=== PATIENT | male | born 1940 | race Caucasian/White ===

== ENCOUNTER 2020-09-30 09:27 | Outpatient (REF) | payer MEDICARE, SELFPAY ==
[2020-09-30 10:16] LABS: Basophils Absolute Auto 0.1 X10*3/uL (0.0-0.2); Basophils Percent Auto 1.6 % (0-2); Eosinophils Absolute Auto 0.5 X10*3/uL (0.0-0.4); Eosinophils Percent Auto 10.4 % (0-4); Hematocrit 37.4 % (42-52); Hemoglobin 12.1 g/dl (14.0-18.0); Imm Gran Abs Auto 0.04 X10*3/uL (0.00-0.03); Imm Gran Pct Auto 0.8 % (0.0-0.4); Lymphocytes Absolute Auto 1.6 X10*3/uL (1.2-4.9); Mean Corpuscular HGB Conc 32.4 g/dl (31.0-36.0); Mean Corpuscular Hemoglobin 30.3 pg (27.0-33.0); Mean Corpuscular Volume 93.7 fL (80-98); Mean Platelet Volume 9.3 fL (9.4-12.4); Monocytes Absolute Auto 0.4 X10*3/uL (0.1-1.2); Monocytes Percent Auto 8.4 % (2-11); Neutrophils Absolute Auto 2.4 X10*3/uL (2.0-8.3); Neutrophils Percent Auto 46.8 % (45-73); Platelet Count 186 X10*3/uL (160-400); Red Blood Count 3.99 X10*6/uL (4.60-5.80); Red Cell Distribution Width 12.7 % (11.0-16.0); White Blood Count 5.1 X10*3/uL (4.8-10.8)
[2020-09-30 10:17] LABS: MANUAL DIFF FLAG NO
[2020-09-30 10:47] LABS: Alanine Aminotransferase 21 U/L (0-40); Albumin Level 3.4 g/dL (3.5-5.0); Alkaline Phosphatase 77 U/L (39-117); Anion Gap 9 (12-20); Aspartate Amino Transferase 29 U/L (5-37); Bilirubin Total 1.4 mg/dL (0.0-1.0); Blood Urea Nitrogen 15 mg/dL (9-16); Calcium 8.5 mg/dL (8.4-10.2); Carbon Dioxide 30 mmol/L (22-29); Chloride 108 mmol/L (96-108); Cholesterol 147 mg/dL; Estimated Glomerular Filt Rate > 60; Glucose Fasting 100 mg/dL (60-99); HDL Cholesterol 43 mg/dL; LDL Cholesterol Calculated 87 mg/dl; Potassium 4.6 mmol/l (3.3-5.1); Sodium 142 mmol/L (135-145); Total Protein 6.2 g/dL (6.5-8.0); Triglycerides 89 mg/dL
== END 2020-09-30 09:28 | disposition home or self-care (01) ==
LOC: HO.LAB 09:27
PROVIDERS: Visit Provider Internal Medicine
DX: I48.91 Unspecified atrial fibrillation (principal); E78.00 Pure hypercholesterolemia, unspecified; I25.10 Atherosclerotic heart disease of native coronary artery without angina pectoris
CPT/HCPCS: 36415; 80053; 80061; 85025

== ENCOUNTER 2021-02-27 10:37 | Outpatient (REF) | payer MEDICARE, SELFPAY ==
[2021-02-27 13:31] LABS: MANUAL DIFF FLAG NO
[2021-02-27 13:36] LABS: Basophils Absolute Auto 0.1 X10*3/uL (0.0-0.2); Basophils Percent Auto 2.4 % (0-2); Eosinophils Absolute Auto 1.1 X10*3/uL (0.0-0.4); Eosinophils Percent Auto 20.5 % (0-4); Hematocrit 36.7 % (42-52); Lymphocytes Absolute Auto 1.4 X10*3/uL (1.2-4.9); Mean Corpuscular HGB Conc 32.7 g/dl (31.0-36.0); Mean Corpuscular Hemoglobin 31.1 pg (27.0-33.0); Mean Corpuscular Volume 95.1 fL (80-98); Mean Platelet Volume 9.8 fL (9.4-12.4); Monocytes Absolute Auto 0.4 X10*3/uL (0.1-1.2); Monocytes Percent Auto 7.1 % (2-11); Neutrophils Absolute Auto 2.4 X10*3/uL (2.0-8.3); Platelet Count 181 X10*3/uL (160-400); Red Blood Count 3.86 X10*6/uL (4.60-5.80); Red Cell Distribution Width 12.5 % (11.0-16.0); White Blood Count 5.5 X10*3/uL (4.8-10.8)
[2021-02-27 13:59] LABS: Alanine Aminotransferase 20 U/L (0-40); Albumin Level 3.5 g/dL (3.5-5.0); Alkaline Phosphatase 74 U/L (39-117); Anion Gap 12 (12-20); Aspartate Amino Transferase 32 U/L (5-37); Bilirubin Total 1.6 mg/dL (0.0-1.0); Blood Urea Nitrogen 18 mg/dL (9-16); Calcium 8.9 mg/dL (8.4-10.2); Carbon Dioxide 28 mmol/L (22-29); Chloride 107 mmol/L (96-108); Estimated Glomerular Filt Rate > 60; Glucose Random 100 mg/dL (60-115); Potassium 4.6 mmol/L (3.3-5.1); Sodium 142 mmol/L (135-145); Total Protein 6.2 g/dL (6.5-8.0)
== END 2021-02-27 10:38 | disposition home or self-care (01) ==
LOC: HO.10HDL 10:37
PROVIDERS: Visit Provider Internal Medicine
DX: I48.91 Unspecified atrial fibrillation (principal); I10 Essential (primary) hypertension; E78.00 Pure hypercholesterolemia, unspecified
CPT/HCPCS: 36415; 80053; 85025

== ENCOUNTER 2021-09-24 08:58 | Outpatient (REF) | payer MEDICARE, SELFPAY ==
[2021-09-24 10:19] LABS: Basophils Absolute Auto 0.1 X10*3/uL (0.0-0.2); Eosinophils Absolute Auto 1.4 X10*3/uL (0.0-0.4); Eosinophils Percent Auto 21.3 % (0-4); Hematocrit 35.2 % (42.0-52.0); Hemoglobin 11.5 g/dl (14.0-18.0); Imm Gran Abs Auto 0.01 X10*3/uL (0.00-0.03); Imm Gran Pct Auto 0.2 % (0.0-0.4); Lymphocytes Absolute Auto 1.7 X10*3/uL (1.2-4.9); Lymphocytes Percent Auto 26.4 % (20-40); Mean Corpuscular HGB Conc 32.7 g/dl (31.0-36.0); Mean Corpuscular Hemoglobin 30.6 pg (27.0-33.0); Mean Corpuscular Volume 93.6 fL (80.0-98.0); Mean Platelet Volume 9.6 fL (9.4-12.4); Monocytes Absolute Auto 0.4 X10*3/uL (0.1-1.2); Monocytes Percent Auto 6.5 % (2-11); Neutrophils Absolute Auto 2.8 x10*3/uL (2.0-8.3); Neutrophils Percent Auto 43.6 % (45-73); Platelet Count 180 X10*3/uL (160-400); Red Blood Count 3.76 X10*6/uL (4.60-5.80); Red Cell Distribution Width 12.2 % (11.0-16.0); White Blood Count 6.4 X10*3/uL (4.8-10.8)
[2021-09-24 10:21] LABS: MANUAL DIFF FLAG SCAN
[2021-09-24 10:36] LABS: Prothrombin Time 23.1 SEC (9.9-13.0)
[2021-09-24 11:02] LABS: Alanine Aminotransferase 21 U/L (0-40); Albumin Level 3.3 g/dL (3.5-5.0); Alkaline Phosphatase 67 U/L (39-117); Anion Gap 10 (12-20); Aspartate Amino Transferase 30 U/L (5-37); Bilirubin Total 1.3 mg/dL (0.0-1.0); Blood Urea Nitrogen 14 mg/dL (9-16); Calcium 8.6 mg/dL (8.4-10.2); Carbon Dioxide 27 mmol/L (22-29); Chloride 110 mmol/L (96-108); Cholesterol 148 mg/dL; Estimated Glomerular Filt Rate > 60; Glucose Fasting 99 mg/dL (60-99); HDL Cholesterol 38 mg/dL; LDL Cholesterol Calculated 91 mg/dl; Potassium 4.2 mmol/L (3.3-5.1); Sodium 143 mmol/L (135-145); Triglycerides 99 mg/dL
[2021-09-24 11:33] LABS: Prostate Specific Antigen Scr 2.74 ng/mL (<0.05-4.0)
[2021-09-24 13:17] LABS: SLIDE REVIEW VERIFIED
== END 2021-09-24 08:59 | disposition home or self-care (01) ==
LOC: HO.10HDL 08:58
PROVIDERS: Visit Provider Internal Medicine
DX: Z12.5 Encounter for screening for malignant neoplasm of prostate (principal); I48.91 Unspecified atrial fibrillation; E78.00 Pure hypercholesterolemia, unspecified; I10 Essential (primary) hypertension; I25.10 Atherosclerotic heart disease of native coronary artery without angina pectoris
CPT/HCPCS: 36415; 80053; 80061; 84153; 85025; 85610

== ENCOUNTER 2022-04-02 09:50 | Outpatient (REF) | payer MEDICARE, SELFPAY ==
[2022-04-02 10:27] LABS: Basophils Absolute Auto 0.1 X10*3/uL (0.0-0.2); Basophils Percent Auto 1.9 % (0-2); Eosinophils Absolute Auto 1.3 X10*3/uL (0.0-0.4); Eosinophils Percent Auto 21.2 % (0-4); Hemoglobin 11.7 g/dl (14.0-18.0); Imm Gran Abs Auto 0.01 X10*3/uL (0.00-0.03); Imm Gran Pct Auto 0.2 % (0.0-0.4); Lymphocytes Absolute Auto 1.5 X10*3/uL (1.2-4.9); MANUAL DIFF FLAG SCAN; Mean Corpuscular HGB Conc 32.5 g/dl (31.0-36.0); Mean Corpuscular Hemoglobin 30.8 pg (27.0-33.0); Mean Corpuscular Volume 94.7 fL (80.0-98.0); Mean Platelet Volume 9.3 fL (9.4-12.4); Monocytes Absolute Auto 0.5 X10*3/uL (0.1-1.2); Monocytes Percent Auto 8.1 % (2-11); Neutrophils Absolute Auto 2.9 x10*3/uL (2.0-8.3); Neutrophils Percent Auto 45.6 % (45-73); Platelet Count 191 X10*3/uL (160-400); Red Cell Distribution Width 12.5 % (11.0-16.0); SCAN SMEAR FLAG 1; White Blood Count 6.3 X10*3/uL (4.8-10.8)
[2022-04-02 10:32] LABS: INTERNATIONAL NORM RATIO 2.5 (0.9-1.1); Prothrombin Time 28.6 SEC (9.9-13.0)
[2022-04-02 10:46] LABS: SLIDE REVIEW VERIFIED
[2022-04-02 10:53] LABS: Alanine Aminotransferase 17 U/L (0-40); Albumin Level 3.4 g/dL (3.5-5.0); Alkaline Phosphatase 78 U/L (39-117); Anion Gap 9 (12-20); Aspartate Amino Transferase 27 U/L (5-37); Bilirubin Total 1.5 mg/dL (0.0-1.0); Blood Urea Nitrogen 17 mg/dL (9-16); Carbon Dioxide 27 mmol/L (22-29); Chloride 109 mmol/L (96-108); Estimated Glomerular Filt Rate > 60; Glucose Random 103 mg/dL (60-115); Potassium 4.4 mmol/L (3.3-5.1); Sodium 141 mmol/L (135-145); Total Protein 6.4 g/dL (6.5-8.0)
== END 2022-04-02 09:51 | disposition home or self-care (01) ==
LOC: HO.LAB 09:50
PROVIDERS: PCP Internal Medicine; Visit Provider Internal Medicine
DX: I48.91 Unspecified atrial fibrillation (principal); I10 Essential (primary) hypertension; D64.9 Anemia, unspecified
CPT/HCPCS: 36415; 80053; 85025; 85610

== ENCOUNTER 2022-07-19 09:08 | Day surgery (SDC) | payer MEDICARE, SELFPAY ==
[2022-07-14 15:24] VITALS: BMI 25.8
--- NOTE | 2022-07-16 13:02 | MHC.SHP ---
Pre-Procedural Eval Section A Date of Service: 07/16/22 The patient is an INPATIENT: No Changes since office visit: No Cold of Flu in the past 2 weeks, No New Medical Problems, No Changes in Medication and No Patient answered all questions The History & Physical has been completed within 30 days and I have reviewed it.: Yes Section B Chief Complaint: Age-related nuclear cataract, right eye Allergies: Allergies Allergy/AdvReac Type Severity Reaction Status Date / Time No Known Allergies Allergy Unverified 07/14/22 11:29 Plan Diagnosis/Plan: Unchanged I have reviewed the history and physical and performed a pertinent physical examination on my patient. No changes have occurred unless specified.
--- NOTE | 2022-07-16 20:21 | HP_ITS ---
DATE OF SERVICE: 07/19/2022 HISTORY OF PRESENT ILLNESS: The patient is an 82-year-old male who was seen in the office on June 21 for preop evaluation prior to right cataract surgery by Dr. Reynoso. The patient has no reported allergies to medicines. PAST MEDICAL HISTORY: Significant for atrial fibrillation, hypertension, elevated cholesterol, BPH, artificial aortic valve, diverticulosis, abdominal wall hernias, coronary artery disease, long-term use of insulin. PRESENT MEDICATIONS: Lipitor 40, Coumadin, finasteride 5, lisinopril 20 twice a day, carvedilol 12.5 twice a day. REVIEW OF SYSTEMS: No weight changes. No fevers, chills, or sweats. No headaches or dizziness. Some peripheral edema. No palpitations or chest pain. No shortness of breath or coughing. No complaints of heartburn or abdominal pain. Some nocturia. No complaints of arthritis. No speech changes. No problems with confusion. Sleep and appetite are normal. No seasonal allergies. No skin complaints. PHYSICAL EXAMINATION: GENERAL: He is awake and alert, in no distress. VITAL SIGNS: Temperature 99.3, pulse 72, respirations 12, blood pressure 130/70, oxygen 99% on room air. Weight is 165. He is 5 feet 7 inches. HEENT: TMs clear. Pharynx clear. Pupils equal. HEART: He is in atrial fibrillation with a controlled rate. LUNGS: Clear. ABDOMEN: Soft, nontender. Positive bowel sounds. There are multiple anterior abdominal wall hernias. EXTREMITIES: Trace edema on the left. Pulses are intact. He does not smoke. NEUROLOGIC: He is awake and alert. Oriented x3. Cranial nerves II through XII are intact. ASSESSMENT AND PLAN: He is medically stable for the proposed procedure. I will be available if there are any medical issues. MD SKY Orellana/YAZAN / [id number]
[2022-07-19 11:05] VITALS: BP 178/85; PULSE 72; RESP 18; TEMP 36.3; O2SAT 98
[2022-07-19] MEDS: Lactated Ringers 500 ML 50 ML IVCONT (11:06)
[2022-07-19] MEDS: Tetracaine HCl/PF 0.5% Oph Sol 4 ML DROPS 1 DROP EYE-RIGHT (11:07)
[2022-07-19] MEDS: Tropicamide 1 % Ophth Sol 3 ML BTL 1 DROP EYE-RIGHT ×3 (11:07→11:23)
[2022-07-19] MEDS: Phenylephrine HCL 2.5% Oph SoL 2 ML BOTTLE 1 DROP EYE-RIGHT ×3 (11:08→11:23)
[2022-07-19] MEDS: Cyclopentolate 1 % Ophth Sol 2 ML DRPBTL 1 DROP EYE-RIGHT ×3 (11:08→11:23)
[2022-07-19 11:28] VITALS: BP 162/95
--- NOTE | 2022-07-19 11:53 | HO.ANESPROP2 ---
HPI - Anesthesia Eval Consult details Narrative: rigth eye cataract [facility] Past Medical History Medical History Anemia Aortic valvular disease BPH (benign prostatic hyperplasia) CAD (coronary artery disease) HTN (hypertension) Hyperlipidemia On anticoagulant therapy Family History Family history of problems with anesthesia: No Surgical History Surgical History History of heart artery stent Hx of aortic valve replacement with porcine valve Hx of colonoscopy History of Problems with Anesthesia: No Social History Social History Are you a primary patient care technician instructor to a significant other at home: No Do you presently have visiting nurse or other home services: No Patient Tobacco Use Status: Never used Tobacco Second Hand Smoke Exposure: No Use of substances other than those prescribed or required for medical reasons: No Have you been hit, kicked, punched, or otherwise hurt by someone within the past year? If so, by whom?: No Are you DNR?: No Advance Directives: No Advance Directives Information Provided: Yes Advance Directives on File: No Recently lost weight without trying: No Eating poorly because of decreased appetite: No Nutrition Risks: No Nutritional Risk Meds Allergies Allergy/AdvReac Type Severity Reaction Status Date / Time No Known Allergies Allergy Verified 07/19/22 10:54 Active Medications: Current Medications Lactated Ringer's (Lr) 500 mls @ 50 mls/hr IVCONT .Q10H NALLELY Last Admin: 07/19/22 11:06 Dose: 50 mls/hr Povidone Iodine (Povidone Iodine 5 % [facility] 30 Ml Bottle) 1 appl EYE-RIGHT PREOP PRN PRN Reason: Pre-Op Surgical Implant Prophy Home Medications Medication Instructions Recorded Confirmed Last Taken Type atorvastatin 40 mg tablet 1 tab PO DAILY 06/09/22 06/09/22 Unknown History carvedilol 25 mg tablet 1 tab PO BID 06/09/22 06/09/22 07/19/22 History finasteride 5 mg tablet 1 tab PO DAILY 06/09/22 06/09/22 Unknown History lisinopril 20 mg tablet 1 tab PO BID 06/09/22 06/09/22 Unknown History warfarin 2 mg tablet 1 tab PO DAILY 06/09/22 06/09/22 Unknown History warfarin 3 mg tablet 1 tab PO DAILY 06/09/22 06/09/22 Unknown History Exam Exam Date and Time: July 19, 2022 1153 Height,Weight and Vital Signs: Height 5 ft 7 in Weight 74.843 kg Last Vital Signs Temp 97.4 F 07/19/22 11:05 Pulse 72 07/19/22 11:05 Resp 18 07/19/22 11:05 BP 162/95 H 07/19/22 11:28 Pulse Ox 98 07/19/22 11:05 O2 Del Method 07/19/22 11:05 Airway Mallampati Class: II TM Dist: >3cm Neck ROM: Full Denture: Upper and Lower Heart: rrr +s1s2 Lungs: cta b/l Assessment and Plan Assessment Anesthesia Assessment: Anesthesia Plan Discussed and Chart Reviewed Final Anesthetic Review Family History of Problems with Anesthesia: No History of Problems with Anesthesia: No NPO: Yes ASA Class: III Final Preanesthetic Review: No Changes in Pt Med Stat, Meds/Allgs Chart Reviewed, Consent Obtained/Reviewed and Anes Risks/Benef Reviewed Patient Risk: Intermediate Procedure Risk: Low Assessment/Block/Sedation in SS: Assess/Block/Sedation-SS Anesthetic Plan Anesthetic Plan: MAC: and Agree w/ Assess. and Plan Disposition: Standard PACU
--- NOTE | 2022-07-19 12:05 | HO.PNOPHT ---
Ophthalmology Procedure Procedure Date of Service: 07/19/22 Ophthalmology Viscoelastic: Perez Har[employer]tont Dual Pack Pro Ophthalmology Lenses: TECMO [id number] (19) Procedure Notes: PREOPERATIVE DIAGNOSIS: Decreased visual acuity right eye secondary to cataract POSTOPERATIVE DIAGNOSIS: Same PROCEDURE: Right cataract extraction with intraocular lens insertion SURGEON: Sb Reynoso M.D. ANESTHESIA: Topical/MAC ESTIMATED BLOOD LOSS: None COMPLICATIONS: None After obtaining informed consent, the patient was brought to the operating room suite and placed in the supine position. After adequate sedation per anesthesia, topical drops of Tetracaine were given to the right eye. The eye was then prepped and draped in the usual sterile fashion. The operating room microscope was then positioned over the operative eye and a lid speculum placed. A paracentesis was created. Viscoelastic was then instilled into the anterior chamber. A three plane incision was then created temporally, utilizing a 2.85 mm keratome. Capsulotomy forceps were then utilized to create a circular tear capsulotomy. Hydrodissection and hydrodelineation were carried out until adequate mobilization of the nucleus occurred. Phacoemulsification was then utilized to remove the dense central nucleus followed by removal of the cortical material utilizing the automated aspiration irrigation unit. Viscoelastic was instilled into the posterior capsular bag followed by placement of a posterior chamber intraocular lens without difficulty. The residual Viscoelastic was then removed utilizing the automated IA machine. The wound was checked and found to be watertight. The patient tolerated the procedure well and the lid speculum was removed. Intracameral injection of Vigamox 0.1 mL followed by a subtenon injection of Kenalog-40 0.2 mL were administered. The patient will be seen in the a.m.
[2022-07-19 12:24] VITALS: BP 173/75; PULSE 76; RESP 16; TEMP 36.1; O2SAT 97
== END 2022-07-19 12:37 | disposition home or self-care (01) ==
PROVIDERS: PCP Internal Medicine; Visit Provider Ophthalmology
PROC: (CPT 66985; principal; 2022-07-19 11:40)
DX: H25.11 Age-related nuclear cataract, right eye (principal); I10 Essential (primary) hypertension; Z79.899 Other long term (current) drug therapy
CPT/HCPCS: 66984; J3010; J3300; V2632

== ENCOUNTER 2022-09-09 13:49 | Outpatient (REF) | payer MEDICARE, SELFPAY ==
--- NOTE | ~2022-09-09 | XR_ITS ---
EXAMINATION: XR RIBS, RIGHT CLINICAL INFORMATION: Pleurodynia COMPARISON: 11/08/2019 TECHNIQUE: 3 views of the right ribs were obtained. PA view of the chest. FINDINGS: Lungs are clear. No consolidation, pneumothorax, or pleural effusion. The cardiomediastinal silhouette and pulmonary vasculature are normal. Aortic valvular hardware. Median sternotomy wires appear intact. No acute osseous abnormality. A marker overlies the right lateral ribs. Ribs are intact. No fractures are identified. XR/XR ribs RT min 3V w CXR1V IMPRESSION: Clear lungs. No focal rib abnormality identified.
== END 2022-09-09 13:50 | disposition home or self-care (01) ==
LOC: HO.HMGCX 13:49
PROVIDERS: PCP Internal Medicine
DX: R07.81 Pleurodynia (principal)
CPT/HCPCS: 71101

== ENCOUNTER 2022-11-04 09:20 | Outpatient (REF) | payer MEDICARE, SELFPAY ==
[2022-11-04 09:37] LABS: MANUAL DIFF FLAG NO
[2022-11-04 10:33] LABS: Basophils Absolute Auto 0.2 X10*3/uL (0.0-0.2); Basophils Percent Auto 2.8 % (0-2); Eosinophils Absolute Auto 0.8 X10*3/uL (0.0-0.4); Eosinophils Percent Auto 14.2 % (0-4); Hematocrit 37.2 % (42.0-52.0); Hemoglobin 12.1 g/dl (14.0-18.0); Imm Gran Abs Auto 0.01 X10*3/uL (0.00-0.03); Imm Gran Pct Auto 0.2 % (0.0-0.4); Lymphocytes Absolute Auto 1.7 X10*3/uL (1.2-4.9); Lymphocytes Percent Auto 28.8 % (20-40); Mean Corpuscular HGB Conc 32.5 g/dl (31.0-36.0); Mean Corpuscular Hemoglobin 30.6 pg (27.0-33.0); Mean Corpuscular Volume 93.9 fL (80.0-98.0); Mean Platelet Volume 9.6 fL (9.4-12.4); Monocytes Absolute Auto 0.5 X10*3/uL (0.1-1.2); Monocytes Percent Auto 8.1 % (2-11); Neutrophils Absolute Auto 2.7 x10*3/uL (2.0-8.3); Neutrophils Percent Auto 45.9 % (45-73); Platelet Count 191 X10*3/uL (160-400); Red Blood Count 3.96 X10*6/uL (4.60-5.80); Red Cell Distribution Width 12.4 % (11.0-16.0); White Blood Count 5.8 X10*3/uL (4.8-10.8)
[2022-11-04 10:34] LABS: INTERNATIONAL NORM RATIO 2.6 (0.9-1.1); Prothrombin Time 31.5 SEC (10.0-13.1)
[2022-11-04 11:24] LABS: Alanine Aminotransferase 20 U/L (0-40); Albumin Level 3.4 g/dL (3.5-5.0); Alkaline Phosphatase 81 U/L (39-117); Anion Gap 9 (12-20); Aspartate Amino Transferase 27 U/L (5-37); Bilirubin Total 1.6 mg/dL (0.0-1.0); Blood Urea Nitrogen 18 mg/dL (9-16); Calcium 8.8 mg/dL (8.4-10.2); Carbon Dioxide 29 mmol/L (22-29); Chloride 110 mmol/L (96-108); Cholesterol 154 mg/dL; Estimated Glomerular Filt Rate > 60; Glucose Fasting 97 mg/dL (60-99); HDL Cholesterol 40 mg/dL; LDL Cholesterol Calculated 98 mg/dl; Potassium 4.4 mmol/L (3.3-5.1); Prostate Specific Antigen Scr 3.15 ng/mL (<0.05-4.0); Sodium 144 mmol/L (135-145); Total Protein 6.3 g/dL (6.5-8.0); Triglycerides 84 mg/dL
== END 2022-11-04 09:21 | disposition home or self-care (01) ==
LOC: HO.LAB 09:20
PROVIDERS: PCP Internal Medicine; Visit Provider Internal Medicine
DX: Z12.5 Encounter for screening for malignant neoplasm of prostate (principal); I48.91 Unspecified atrial fibrillation; I25.10 Atherosclerotic heart disease of native coronary artery without angina pectoris; I10 Essential (primary) hypertension; R35.1 Nocturia; D64.9 Anemia, unspecified
CPT/HCPCS: 36415; 80053; 80061; 84153; 85025; 85610

== ENCOUNTER 2022-12-28 15:29 | Outpatient (REF) | payer MEDICARE, SELFPAY ==
[2022-12-28 16:09] LABS: Basophils Absolute Auto 0.1 X10*3/uL (0.0-0.2); Basophils Percent Auto 1.7 % (0-2); Eosinophils Absolute Auto 1.6 X10*3/uL (0.0-0.4); Eosinophils Percent Auto 22.6 % (0-4); Hematocrit 36.6 % (42.0-52.0); Hemoglobin 11.7 g/dl (14.0-18.0); Imm Gran Abs Auto 0.01 X10*3/uL (0.00-0.03); Imm Gran Pct Auto 0.1 % (0.0-0.4); Lymphocytes Absolute Auto 1.9 X10*3/uL (1.2-4.9); Lymphocytes Percent Auto 28.1 % (20-40); MANUAL DIFF FLAG SCAN; Mean Corpuscular Hemoglobin 29.8 pg (27.0-33.0); Mean Corpuscular Volume 93.1 fL (80.0-98.0); Mean Platelet Volume 9.2 fL (9.4-12.4); Monocytes Absolute Auto 0.8 X10*3/uL (0.1-1.2); Monocytes Percent Auto 11.5 % (2-11); Neutrophils Absolute Auto 2.5 x10*3/uL (2.0-8.3); Platelet Count 223 X10*3/uL (160-400); Red Blood Count 3.93 X10*6/uL (4.60-5.80); Red Cell Distribution Width 12.5 % (11.0-16.0); SCAN SMEAR FLAG 1; White Blood Count 6.9 X10*3/uL (4.8-10.8)
[2022-12-28 16:23] LABS: INTERNATIONAL NORM RATIO 3.2 (0.9-1.1)
[2022-12-28 16:28] LABS: SLIDE REVIEW VERIFIED
[2022-12-28 16:42] LABS: Alanine Aminotransferase 25 U/L (0-40); Albumin Level 3.2 g/dL (3.5-5.0); Alkaline Phosphatase 102 U/L (39-117); Anion Gap 9 (12-20); Aspartate Amino Transferase 33 U/L (5-37); Bilirubin Total 1.2 mg/dL (0.0-1.0); Blood Urea Nitrogen 17 mg/dL (9-16); C Reactive Protein 0.33 mg/dL (< or = 0.50); Calcium 8.7 mg/dL (8.4-10.2); Carbon Dioxide 29 mmol/L (22-29); Chloride 109 mmol/L (96-108); Estimated Glomerular Filt Rate > 60; Glucose Random 96 mg/dL (60-115); Lipase 9 U/L (8-78); Potassium 4.7 mmol/L (3.3-5.1); Sodium 142 mmol/L (135-145); Total Protein 6.3 g/dL (6.5-8.0)
== END 2022-12-28 15:30 | disposition home or self-care (01) ==
LOC: HO.LAB 15:29
PROVIDERS: PCP Internal Medicine; Visit Provider Internal Medicine
DX: I48.91 Unspecified atrial fibrillation (principal); I25.10 Atherosclerotic heart disease of native coronary artery without angina pectoris
CPT/HCPCS: 36415; 80053; 83690; 85025; 85610; 86140

== ENCOUNTER 2022-12-29 10:48 | Outpatient (REF) | payer MEDICARE, SELFPAY ==
[2022-12-29 14:51] LABS: Adenovirus F 40/41 Not Detected (Not Detect.); Astrovirus Not Detected (Not Detect.); Campylobacter Not Detected (Not Detect.); Cryptosporidium Not Detected (Not Detect.); Cyclospora cayetanensis Not Detected (Not Detect.); E. coli EAEC Not Detected (Not Detect.); E. coli EPEC Not Detected (Not Detect.); E. coli ETEC Not Detected (Not Detect.); E. coli STEC Not Detected (Not Detect.); Entamoeba histolytica Not Detected (Not Detect.); Giardia lamblia Not Detected (Not Detect.); Norovirus GI/GII Not Detected (Not Detect.); Plesiomonas shigelloides Not Detected (Not Detect.); Rotavirus A Not Detected (Not Detect.); Salmonella Not Detected (Not Detect.); Sapovirus Not Detected (Not Detect.); Shigella sp./EIEC Not Detected (Not Detect.); Vibrio Not Detected (Not Detect.); Vibrio Cholerae Not Detected (Not Detect.); Yersinia enterocolitica Not Detected (Not Detect.)
== END 2022-12-29 10:49 | disposition home or self-care (01) ==
LOC: HO.LNP 10:48
PROVIDERS: Visit Provider Internal Medicine
DX: I48.91 Unspecified atrial fibrillation (principal); I25.10 Atherosclerotic heart disease of native coronary artery without angina pectoris; Z95.2 Presence of prosthetic heart valve
CPT/HCPCS: 87507

== ENCOUNTER 2023-05-30 07:24 | Day surgery (SDC) | payer MEDICARE, SELFPAY ==
--- NOTE | 2023-05-27 14:08 | P.CONAN_ITS ---
Documented by User: Daja Ulloa NP 05/27/23 14:13 HPI - Anesthesia Eval Consult details Narrative: 83yo M for Colonoscopy Medically optimized CAD s/p stent 2007, 2017 s/p AVR 2005 Coumadin for hx bilat PE and RLE DVT PMFSH Active Problems Active Problems: All Active Problems (Updated 05/27/23 @ 13:42 by Scarlett Orantes, RN) Rib pain on right side (Acute) Past Medical History Medical History (Updated 05/27/23 @ 13:42 by Scarlett Orantes RN) Anemia Aortic valvular disease BPH (benign prostatic hyperplasia) CAD (coronary artery disease) HTN (hypertension) Hyperlipidemia Kidney cysts On anticoagulant therapy Rib pain on right side Family History Family history of problems with anesthesia: No Surgical History Surgical History History of heart artery stent Hx of aortic valve replacement with porcine valve Hx of colonoscopy History of Problems with Anesthesia: No Social History Social History Are you a primary healthcare administrative assistant to a significant other at home: No Do you presently have visiting nurse or other home services: No Patient Tobacco Use Status: Former Tobacco user Quit Date: 50 years ago Second Hand Smoke Exposure: No Use of substances other than those prescribed or required for medical reasons: No Are you DNR?: No Advance Directives: No Advance Directives Information Provided: Yes Advance Directives on File: No Meds Allergies Allergy/AdvReac Type Severity Reaction Status Date / Time No Known Allergies Allergy Verified 09/09/22 13:20 Home Medications Medication Instructions Recorded Confirmed Last Taken Type atorvastatin 40 mg tablet 1 tab PO DAILY 06/09/22 09/09/22 Unknown History carvedilol 25 mg tablet 1 tab PO BID 06/09/22 09/09/22 07/19/22 History finasteride 5 mg tablet 1 tab PO DAILY 06/09/22 09/09/22 Unknown History lisinopril 20 mg tablet 1 tab PO BID 06/09/22 09/09/22 Unknown History warfarin 2 mg tablet 1 tab PO DAILY 06/09/22 09/09/22 Unknown History warfarin 3 mg tablet 1 tab PO DAILY 06/09/22 09/09/22 Unknown History aspirin 81 mg tablet,delayed 81 mg PO DAILY 09/09/22 09/09/22 Unknown History release (Adult Aspirin Regimen) Exam Exam Date and Time: May 27, 2023 1408 Pertinent Lab Results Pertinent Lab Results: Laboratory Tests 12/28/22 12/28/22 15:49 15:49 WBC 6.9 Hgb 11.7 L Hct 36.6 L Plt Count 223 Sodium 142 Potassium 4.7 Chloride 109 H Carbon Dioxide 29 BUN 17 H Creatinine 0.86 Assessment and Plan Assessment Anesthesia Assessment: Chart Reviewed Final Anesthetic Review Family History of Problems with Anesthesia: No History of Problems with Anesthesia: No Documented by User: Berta Ling MD 05/30/23 08:49 PMFSH Past Medical History Medical History (Updated 05/27/23 @ 13:42 by Scarlett Orantes RN) Anemia Aortic valvular disease BPH (benign prostatic hyperplasia) CAD (coronary artery disease) HTN (hypertension) Hyperlipidemia Kidney cysts On anticoagulant therapy Rib pain on right side Surgical History Surgical History History of heart artery stent Hx of aortic valve replacement with porcine valve Hx of colonoscopy Social History Social History Are you a primary healthcare administrative assistant to a significant other at home: No Do you presently have visiting nurse or other home services: No Patient Tobacco Use Status: Former Tobacco user Quit Date: 50 years ago Second Hand Smoke Exposure: No Use of substances other than those prescribed or required for medical reasons: No Are you DNR?: No Advance Directives: No Advance Directives Information Provided: Yes Advance Directives on File: No Meds Allergies Allergy/AdvReac Type Severity Reaction Status Date / Time No Known Allergies Allergy Verified 09/09/22 13:20 Home Medications Medication Instructions Recorded Confirmed Last Taken Type atorvastatin 40 mg tablet 1 tab PO DAILY 06/09/22 09/09/22 Unknown History carvedilol 25 mg tablet 1 tab PO BID 06/09/22 09/09/22 07/19/22 History finasteride 5 mg tablet 1 tab PO DAILY 06/09/22 09/09/22 Unknown History lisinopril 20 mg tablet 1 tab PO BID 06/09/22 09/09/22 Unknown History warfarin 2 mg tablet 1 tab PO DAILY 06/09/22 09/09/22 Unknown History warfarin 3 mg tablet 1 tab PO DAILY 06/09/22 09/09/22 Unknown History aspirin 81 mg tablet,delayed 81 mg PO DAILY 09/09/22 09/09/22 Unknown History release (Adult Aspirin Regimen) Exam Airway Mallampati Class: I TM Dist: >3cm Neck ROM: Full Denture: Upper and Lower Loose/Missing/Broken Teeth: No Heart: rr Lungs: cta Assessment and Plan Assessment Anesthesia Assessment: Anesthesia Plan Discussed Final Anesthetic Review NPO: Yes ASA Class: I Final Preanesthetic Review: No Changes in Pt Med Stat, Meds/Allgs Chart Reviewed, Consent Obtained/Reviewed and Anes Risks/Benef Reviewed Patient Risk: Low Procedure Risk: Low Anesthetic Plan Anesthetic Plan: MAC: Disposition: Standard PACU
[2023-05-30 07:53] VITALS: BMI 25.4
[2023-05-30 08:22] VITALS: BP 133/76; PULSE 69; RESP 16; TEMP 36.1; O2SAT 97
[2023-05-30 08:28] LABS: Prothrombin Time 11.9 SEC (10.0-13.1)
[2023-05-30] MEDS: Lactated Ringers 1,000 ML 100 ML IVCONT (08:28)
[2023-05-30 09:54] VITALS: BP 91/53; PULSE 79; RESP 16; TEMP 36.6; O2SAT 96
--- NOTE | 2023-05-30 09:55 | P.BOP_ITS ---
Brief Operative Note Date of Service: 05/30/23 Pre-op diagnosis: + Cologuard Post-op diagnosis: other (Diverticulosis) Procedure: Colonoscopy to the cecum and TI Surgeon: David Palomino Anesthesia: MAC Was an Saturator Operator used for this Procedure?: No Estimated blood loss (mL): 0 Pathology: none sent Condition: stable Disposition: PACU
[2023-05-30 10:09] VITALS: BP 142/68; PULSE 85; RESP 16; TEMP 36.6; O2SAT 99
--- NOTE | 2023-05-30 10:17 | OP_ITS ---
DATE OF SERVICE: 05/30/2023 SURGEON: David Palomino MD INDICATIONS: The patient presents for evaluation of some change in bowel habits and a positive Cologuard test. Full consent obtained from him for this, including risks of bleeding and perforation. PREOPERATIVE DIAGNOSIS: Positive Cologuard test. POSTOPERATIVE DIAGNOSIS: Positive Cologuard test. Diverticulosis and internal hemorrhoids. PROCEDURE PERFORMED: Colonoscopy to the cecum and terminal ileum. ESTIMATED BLOOD LOSS: COMPLICATIONS: ANESTHESIA: Monitored anesthesia care. ASSISTANTS: SPECIMENS: DESCRIPTION OF PROCEDURE: The patient was placed in the left lateral decubitus position. The digital rectal exam revealed no abnormalities. The Olympus video pediatric colonoscope was entered into the rectum and advanced easily to the cecum. Once in the cecum, I did identify normal-appearing cecal pouch with appendiceal orifice and a normal-appearing ileocecal valve. The terminal ileum was cannulated and appeared normal. The scope was withdrawn back in the colon. The entire cecum and ileocecal valve appeared normal. The scope was slowly withdrawn assessing all mucosal surfaces carefully. Preparation was excellent. I did not visualize any sign of polyps, colitis, nor angiodysplasia. There was a mild amount of sigmoid diverticulosis. In the rectum, scope was retroflexed visualizing small internal hemorrhoids, but no other pathology. The rectal mucosa appeared normal. The scope was straightened and withdrawn from the patient. He tolerated the procedure well and was returned to recovery area in stable condition. IMPRESSION: 1. Mild diverticulosis. 2. Internal hemorrhoids. PLAN: Given the patient's negative exam and his age, he will not need any further screening colonoscopies. He was advised to resume his Coumadin at the normal dosage today and then check with his physician or the Coumadin Clinic regarding adjustment of that and whether or not he needs to be on Lovenox for a few days, until the Coumadin becomes therapeutic. This has all been discussed with his . MD JESSICA Gibson/YAZAN / [id number] MTDD
== END 2023-05-30 10:44 | disposition home or self-care (01) ==
PROVIDERS: Nurse Practitioner; PCP Internal Medicine; Visit Provider Internal Medicine
PROC: 0DJD8ZZ Inspection of Lower Intestinal Tract, Via Natural or Artificial Opening Endoscopic (ICD-10-PCS; CPT 45378; principal; 2023-05-30 08:30)
DX: K57.30 Diverticulosis of large intestine without perforation or abscess without bleeding (principal); K64.8 Other hemorrhoids; R19.5 Other fecal abnormalities; R19.4 Change in bowel habit; I10 Essential (primary) hypertension; E78.5 Hyperlipidemia, unspecified; I48.91 Unspecified atrial fibrillation; Z95.4 Presence of other heart-valve replacement; Z87.891 Personal history of nicotine dependence; Z79.82 Long term (current) use of aspirin; Z79.01 Long term (current) use of anticoagulants; Z79.899 Other long term (current) drug therapy; Z80.1 Family history of malignant neoplasm of trachea, bronchus and lung
CPT/HCPCS: G0121; 36415; 85610

== ENCOUNTER 2023-06-09 08:59 | Outpatient (REF) | payer MEDICARE, SELFPAY ==
[2023-06-09 09:26] LABS: MANUAL DIFF FLAG NO
[2023-06-09 09:44] LABS: Basophils Absolute Auto 0.1 X10*3/uL (0.0-0.2); Basophils Percent Auto 1.8 % (0-2); Eosinophils Absolute Auto 0.6 X10*3/uL (0.0-0.4); Eosinophils Percent Auto 11.7 % (0-4); Hematocrit 35.4 % (42.0-52.0); Hemoglobin 11.3 g/dl (14.0-18.0); Imm Gran Abs Auto 0.01 X10*3/uL (0.00-0.03); Imm Gran Pct Auto 0.2 % (0.0-0.4); Lymphocytes Absolute Auto 1.5 X10*3/uL (1.2-4.9); Lymphocytes Percent Auto 29.4 % (20-40); Mean Corpuscular HGB Conc 31.9 g/dl (31.0-36.0); Mean Corpuscular Hemoglobin 30.1 pg (27.0-33.0); Mean Corpuscular Volume 94.4 fL (80.0-98.0); Mean Platelet Volume 9.3 fL (9.4-12.4); Monocytes Absolute Auto 0.5 X10*3/uL (0.1-1.2); Monocytes Percent Auto 9.9 % (2-11); Neutrophils Absolute Auto 2.3 x10*3/uL (2.0-8.3); Platelet Count 182 X10*3/uL (160-400); Red Blood Count 3.75 X10*6/uL (4.60-5.80)
[2023-06-09 10:13] LABS: Alanine Aminotransferase 53 U/L (0-40); Albumin Level 3.2 g/dL (3.5-5.0); Alkaline Phosphatase 78 U/L (39-117); Anion Gap 13 (12-20); Aspartate Amino Transferase 51 U/L (5-37); Bilirubin Total 1.7 mg/dL (0.0-1.0); Blood Urea Nitrogen 14 mg/dL (9-16); Calcium 8.8 mg/dL (8.4-10.2); Carbon Dioxide 24 mmol/L (22-29); Chloride 111 mmol/L (96-108); Cholesterol 135 mg/dL; Estimated Glomerular Filt Rate > 60; Glucose Fasting 96 mg/dL (60-99); HDL Cholesterol 38 mg/dL; Iron 90 mcg/dL (45-160); LDL Cholesterol Calculated 83 mg/dl; Percent Iron Saturation 34 % (15-50); Potassium 4.5 mmol/L (3.3-5.1); Sodium 143 mmol/L (135-145); Total Iron Binding Capacity 265 mcg/dL (228-428); Total Protein 6.5 g/dL (6.5-8.0); Triglycerides 74 mg/dL; Unsaturated Iron Binding 175 ug/dL
== END 2023-06-09 09:00 | disposition home or self-care (01) ==
LOC: HO.LAB 08:59
PROVIDERS: PCP Internal Medicine; Visit Provider Internal Medicine
DX: D64.9 Anemia, unspecified (principal); I10 Essential (primary) hypertension; E78.00 Pure hypercholesterolemia, unspecified; Z95.2 Presence of prosthetic heart valve
CPT/HCPCS: 36415; 80053; 80061; 83540; 85025

== ENCOUNTER 2023-07-22 16:42 | Outpatient (REF) | payer MEDICARE, SELFPAY ==
[2023-07-22 18:16] LABS: B Type Natriuretic Peptide 275 pg/mL (<100)
[2023-07-22 18:24] LABS: Alanine Aminotransferase 21 U/L (0-40); Albumin Level 3.5 g/dL (3.5-5.0); Alkaline Phosphatase 84 U/L (39-117); Anion Gap 10 (12-20); Aspartate Amino Transferase 28 U/L (5-37); Bilirubin Direct 0.3 mg/dL (0.0-0.5); Bilirubin Total 1.2 mg/dL (0.0-1.0); Blood Urea Nitrogen 16 mg/dL (9-16); Calcium 9.1 mg/dL (8.4-10.2); Carbon Dioxide 28 mmol/L (22-29); Chloride 110 mmol/L (96-108); Estimated Glomerular Filt Rate > 60; Glucose Random 92 mg/dL (60-115); Iron 77 mcg/dL (45-160); Percent Iron Saturation 29 % (15-50); Potassium 4.2 mmol/L (3.3-5.1); Sodium 144 mmol/L (135-145); Total Iron Binding Capacity 264 mcg/dL (228-428); Total Protein 7.2 g/dL (6.5-8.0); Unsaturated Iron Binding 187 ug/dL
[2023-07-22 18:32] LABS: Free T4 (Free Thyroxine) 0.86 ng/dL (0.71-1.85); Thyroid Stimulating Hormone 2.73 uIU/mL (0.32-4.0)
== END 2023-07-22 16:43 | disposition home or self-care (01) ==
LOC: HO.LAB 16:42
PROVIDERS: PCP Internal Medicine; Visit Provider Internal Medicine
DX: I48.91 Unspecified atrial fibrillation (principal); R79.89 Other specified abnormal findings of blood chemistry; I25.10 Atherosclerotic heart disease of native coronary artery without angina pectoris; R60.0 Localized edema
CPT/HCPCS: 36415; 80048; 80076; 83540; 83880; 84439; 84443

== ENCOUNTER 2023-11-23 14:05 | Outpatient (REF) | payer MEDICARE, SELFPAY ==
[2023-11-23 14:57] LABS: Basophils Absolute Auto 0.2 X10*3/uL (0.0-0.2); Basophils Percent Auto 2.3 % (0-2); Eosinophils Absolute Auto 1.9 X10*3/uL (0.0-0.4); Eosinophils Percent Auto 24.7 % (0-4); Hematocrit 35.9 % (42.0-52.0); Hemoglobin 11.7 g/dl (14.0-18.0); Imm Gran Abs Auto 0.01 X10*3/uL (0.00-0.03); Imm Gran Pct Auto 0.1 % (0.0-0.4); Lymphocytes Percent Auto 25.7 % (20-40); MANUAL DIFF FLAG SCAN; Mean Corpuscular HGB Conc 32.6 g/dl (31.0-36.0); Mean Corpuscular Hemoglobin 30.7 pg (27.0-33.0); Mean Corpuscular Volume 94.2 fL (80.0-98.0); Mean Platelet Volume 9.7 fL (9.4-12.4); Monocytes Absolute Auto 0.5 X10*3/uL (0.1-1.2); Monocytes Percent Auto 6.1 % (2-11); Neutrophils Absolute Auto 3.2 x10*3/uL (2.0-8.3); Neutrophils Percent Auto 41.1 % (45-73); Platelet Count 188 X10*3/uL (160-400); Red Blood Count 3.81 X10*6/uL (4.60-5.80); Red Cell Distribution Width 12.6 % (11.0-16.0); SCAN SMEAR FLAG 1; White Blood Count 7.8 X10*3/uL (4.8-10.8)
[2023-11-23 15:16] LABS: Alanine Aminotransferase 19 U/L (0-40); Albumin Level 3.4 g/dL (3.5-5.0); Alkaline Phosphatase 87 U/L (39-117); Anion Gap 10 (12-20); Aspartate Amino Transferase 28 U/L (5-37); Bilirubin Total 1.1 mg/dL (0.0-1.0); Blood Urea Nitrogen 20 mg/dL (9-16); Calcium 9.3 mg/dL (8.4-10.2); Carbon Dioxide 29 mmol/L (22-29); Chloride 109 mmol/L (96-108); Estimated Glomerular Filt Rate > 60; Glucose Random 85 mg/dL (60-115); Potassium 4.3 mmol/L (3.3-5.1); Sodium 144 mmol/L (135-145)
[2023-11-23 15:18] LABS: B Type Natriuretic Peptide 273 pg/mL (<100)
[2023-11-23 15:46] LABS: SLIDE REVIEW VERIFIED
== END 2023-11-23 14:06 | disposition home or self-care (01) ==
LOC: HO.LAB 14:05
PROVIDERS: PCP Internal Medicine; Visit Provider Internal Medicine
DX: I48.91 Unspecified atrial fibrillation (principal); R60.9 Edema, unspecified; I25.10 Atherosclerotic heart disease of native coronary artery without angina pectoris; I10 Essential (primary) hypertension
CPT/HCPCS: 36415; 80053; 83880; 85025

== ENCOUNTER 2024-09-05 08:02 | Outpatient (REF) | payer MEDICARE, SELFPAY ==
[2024-09-05 10:10] LABS: Basophils Absolute Auto 0.1 X10*3/uL (0.0-0.2); Basophils Percent Auto 2.2 % (0-2); Eosinophils Absolute Auto 1.4 X10*3/uL (0.0-0.4); Eosinophils Percent Auto 21.4 % (0-4); Hematocrit 36.2 % (42.0-52.0); Hemoglobin 11.6 g/dl (14.0-18.0); Imm Gran Abs Auto 0.01 X10*3/uL (0.00-0.03); Imm Gran Pct Auto 0.2 % (0.0-0.4); Lymphocytes Absolute Auto 1.9 X10*3/uL (1.2-4.9); Lymphocytes Percent Auto 29.7 % (20-40); MANUAL DIFF FLAG SCAN; Mean Corpuscular Volume 96.8 fL (80.0-98.0); Mean Platelet Volume 9.6 fL (9.4-12.4); Monocytes Absolute Auto 0.5 X10*3/uL (0.1-1.2); Monocytes Percent Auto 7.1 % (2-11); Neutrophils Absolute Auto 2.6 x10*3/uL (2.0-8.3); Neutrophils Percent Auto 39.4 % (45-73); Platelet Count 203 X10*3/uL (160-400); Red Blood Count 3.74 X10*6/uL (4.60-5.80); SCAN SMEAR FLAG 1; White Blood Count 6.5 X10*3/uL (4.8-10.8)
[2024-09-05 10:35] LABS: SLIDE REVIEW VERIFIED
[2024-09-05 10:39] LABS: Alanine Aminotransferase 20 U/L (0-40); Albumin Level 3.2 g/dL (3.5-5.0); Alkaline Phosphatase 75 U/L (39-117); Anion Gap 11 (12-20); Aspartate Amino Transferase 40 U/L (5-37); Bilirubin Total 1.3 mg/dL (0.0-1.0); Blood Urea Nitrogen 17 mg/dL (9-16); Calcium 8.7 mg/dL (8.4-10.2); Carbon Dioxide 27 mmol/L (22-29); Chloride 110 mmol/L (96-108); Estimated Glomerular Filt Rate > 60; Glucose Fasting 98 mg/dL (60-99); Potassium 3.9 mmol/L (3.3-5.1); Sodium 144 mmol/L (135-145); Total Protein 6.5 g/dL (6.5-8.0)
== END 2024-09-05 08:03 | disposition home or self-care (01) ==
LOC: HO.HMGCLDS 08:02
PROVIDERS: PCP Internal Medicine; Visit Provider Internal Medicine
DX: I48.91 Unspecified atrial fibrillation (principal); I10 Essential (primary) hypertension; E78.00 Pure hypercholesterolemia, unspecified; N40.1 Benign prostatic hyperplasia with lower urinary tract symptoms; Z12.5 Encounter for screening for malignant neoplasm of prostate
CPT/HCPCS: 36415; 80053; 84153; 85025

== ENCOUNTER 2024-10-15 08:38 | Outpatient (AMB) | payer MEDICARE, SELFPAY ==
--- NOTE | 2024-10-15 08:43 | MHC.OFFWIV ---
Intake Vital Signs 10/15/24 08:45 Height 5 ft 7 in Weight 158 lb BMI 24.7 BP 128/76 Blood Pressure Location Lt brachial Position Sitting Pulse 91 Pulse Source Pulse Oximeter Temp 98.1 F Temp Source Oral Pulse Oximetry (%) 97 Oxygen Delivery Method Room Air Intake Visit Reasons: EP-chills, sore throat, diarrhea Intake Note: Patient here for fever,cough,chills, sore throat and diarrhea which all started Tuesday. Patient Tobacco Use Status: Former Tobacco user Allergies No Known Allergies Allergy (Verified 10/15/24 08:45) Do you need a note to return to daycare/school/sports/work: No HPI EP-chills, sore throat, diarrhea HPI Details This note is constructed using voice recognition software. While every effort has been made to ensure accuracy, medical assisting program director errors may have been included. The patient is a 84 year old male who presents to the clinic today with sore throat, cough, diarrhea onset Tuesday. He denies body aches, shortness of breath, fever, did have chills. He has a longstanding history of being on Coumadin, so avoids NSAIDs, has been taking Tylenol for the sore throat which helped some. He also tried gargling warm saltwater. He has no known sick contacts. He is feeling slightly better since symptom onset. [facility] Medical History (Updated 05/27/23 @ 13:42 by Scarlett Orantes RN) Kidney cysts Rib pain on right side Anemia BPH (benign prostatic hyperplasia) Hyperlipidemia On anticoagulant therapy Aortic valvular disease CAD (coronary artery disease) HTN (hypertension) Surgical History History of heart artery stent Hx of aortic valve replacement with porcine valve Hx of colonoscopy Social History Are you a primary special needs child caregiver to a significant other at home: No Do you presently have visiting nurse or other home services: No Patient Tobacco Use Status: Former Tobacco user Second Hand Smoke Exposure: No Review of Systems Const All systems reviewed & are unremarkable except as noted in HPI and below Physical Exam Vital Signs: Last Vital Signs Temp 98.1 F 10/15/24 08:45 Pulse 91 10/15/24 08:45 BP 128/76 10/15/24 08:45 Pulse Ox 97 12/09/24 08:45 Oxygen Delivery Method Room Air 10/15/24 08:45 BMI result Body Mass Index 24.7 Const General: cooperative, healthy appearing, comfortable and no acute distress Orientation/consciousness: patient oriented x3 Limitations: no limitations HEENT Head: Yes normal to inspection Ears: hearing grossly normal bilaterally, external ears normal and TM's normal bilaterally General nose exam: Normal external nose present, Normal nares present and No nasal discharge present Face and sinus: Yes normal facial exam and Yes sinuses nontender Mouth: Normal oral and palatal mucosa present and moist mucous membranes Throat: Yes tonsils normal, Yes uvula midline and Yes posterior oropharynx abnormal (Erythema) Eyes General: appearance normal, both eyes and all related structures Neck Neck: Yes normal visual inspection Resp Effort & Inspection: normal respiratory effort, able to speak in complete sentences, Actively coughing, no respiratory distress, not tachypneic, no tripod positioning and no use of accessory muscles Auscultation: clear to auscultation bilaterally Cardio Jugular venous distension: no JVD Rate: regular rate Rhythm: regular rhythm Heart sounds: S1 normal heart sound present, S2 normal heart sound present, no click, no gallops, no murmurs and no rubs GI Inspection: Yes normal to inspection Palpation (GI): nontender Auscultation: normal bowel sounds Skin General skin exam: no rashes or lesions noted, elasticity normal and turgor normal Neuro General: patient oriented x3 Extrem General: Yes normal to inspection and Yes no clubbing, cyanosis or edema Assessment & Plan Assessment & Plan (1) Flu-like symptoms: Code(s): R68.89 - Other general symptoms and signs Plan: In office rapid strep negative. Viral swab obtained to rule out Covid, Influenza, and RSV based on symptoms. Advised mask wearing while symptomatic and quarantine per current CDC guidelines. Reviewed at home support methods including hydration, humidification, vix vapor rub, sinus rinse, and otc treatment options. Discussed treatment with antiviral therapy for covid with paxlovid and with Tamiflu for influenza, including appropriate use and side effects, and need to start medication within 5 day of symptom onset, preferably within 48 hours of symptom onset. Patient wishes to proceed decline paxlovid antiviral therapy. Advised follow up with worsening symptoms such as dyspnea at rest, which would require emergent evaluation. Plan See above for full details and plan. Orders: Orders SARS-CoV2/FLU/RSV Today J06.9 - Acute upper respiratory infection, unspecified Coding Level of Care Code Est Pt Level 3 (62572) Diagnoses Flu-like symptoms R68.89
[2024-10-15 08:45] VITALS: BP 128/76; PULSE 91; TEMP 36.7; O2SAT 97; BMI 24.7
--- OUTSIDE RECORDS SUMMARY | 2024-10-17 13:10 | XMS_ITS | Patient Health Record ---
Author Organization [facility] Address [address] [place] [address] Care Team Providers Care Straw Hat Brim Cutter Operator Name Role Phone Fransisco Vines MD Primary Care Provider David Weinberg Unavailable [phone] ALLERGIES No Known Allergies REASON FOR REFERRAL No Information MEDICATIONS Medication SIG (Take, Route, Frequency, Duration) Notes Start Date End Date Status Atorvastatin Calcium 40 MG Oral for 90 Active Carvedilol 12.5 MG 1 tablet with food O rally Twice a day for 30 day(s) Active Aspirin 81 81 MG 1 tablet Orally Once a day for 30 day(s) Active Lisinopril 20 MG Oral for 90 A ctive Finasteride 5 MG Oral for 90 A ctive Warfarin Sodium 2 MG Oral for 90 Active SOCIAL HISTORY Tobacco Use: Social History Observation Description Date Details (start date - stop date) Never Smoker NA - NA Sex Assigned At : Social History Observation Description Sex Assigned At Unknown Tobacco Use/Smoking Question Answer Notes Patient is a nonsmoker Alcohol Screen Question Answer Notes Did you have a drink containing alcohol in the p ast year? No Points 0 Interpretation Negative PROBLEMS Problem Type ICD Code Onset Dates Problem Status W/U Status Risk SNOMED Code Notes Problem Positive colorectal cancer screening using Cologuard test (R19.5) Active confirmed 770817880 Problem Change in bowel habits (R19.4) Active confirmed 55161076 Problem Diverticulosis of colon (K57.30) Active confirmed Diverticulosi s of colon (648258916) PLAN OF TREATMENT Future Test Test Name Order Date COLONOSCOPY 03/18/2023 Insurance Providers Payer Name Payer Address Payer Phone Subscriber Number Group Number Insured Name Patient Relationship to Insured Coverage Start Date Coverage End Date MEDICARE OF [place] [address] [place] [id number] SURI STAPLETON Self - patient is the insured [employer] ATT[employer] CLAIMS [address] [place] [address] [phone] [id number] SURI STAPLETON Self - patient is the insured MEDICAL (GENERAL) HISTORY Medical History History ICD Code Stent inserted 05/2008 and i n 04/2017 Dr. Meneses social media analyst---going to be having a nuclear stress test and echocardiogram as of the 03/18/2023 OV with me Cyst on kidney - Dr. 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 Pham 11/20
--- OUTSIDE RECORDS SUMMARY | 2024-10-17 13:10 | XMS_ITS ---
Author Organization [facility] Address [address] [place] [address] Care Team Providers Care Motor Operator Name Role Phone Fransisco Vines MD Primary Care Provider Unavaila David Silveira Unavailable [phone] REASON FOR VISIT POSITIVE COLOGUARD Encounters Encounter Location Date Provider Diagnosis [facility] [address] [place] [address] 06/21/2023 David Palomino PLAN OF TREATMENT No Information
--- OUTSIDE RECORDS SUMMARY | 2024-10-17 13:10 | XMS_ITS ---
Author Organization [facility] Address [address] [place] [address] Care Team Providers Care Chute Man Name Role Phone Fransisco Vines MD Primary Care Provider Ralpha David Silveira Unavailable [phone] REASON FOR VISIT positive colon cancer screening using cologuard, change in bowels PROBLEMS Problem Type ICD Code Onset Dates Problem Status W/U Status Risk SNOMED Code Notes Problem Diverticulosis of colon (K57.30) Active confirmed Diverticulosi s of colon (044867697) Encounters Encounter Location Date Provider Diagnosis [facility] [address] [place], [place] [id number] 05/30/2023 David Palomino Colon cancer scree rebeca Z12.11 ; Heme + stool R19.5 ; Diverticulosis of colon K57.30 ; Internal hemorrhoids K64.8 and Change in bowel habit R19.4 ASSESSMENTS Encounter Date Diagnosis Assessment Notes Treatment Notes Treatment Clinical Notes 05/30/2023 Colon cancer screening (ICD-10 - Z12.11) 05/30/2023 Heme + stool (ICD-10 - R19.5) 05/30/2023 Diverticulosis of colon (ICD-10 - K57.30) 05/30/2023 Internal hemorrhoids (ICD-10 - K64.8) 05/30/2023 Change in bowel habi t (ICD-10 - R19.4) PLAN OF TREATMENT No Information
== END 2024-10-15 09:09 | disposition home or self-care (01) ==
PROVIDERS: PCP Internal Medicine; Visit Provider Registered Nurse
DX: J02.9 Acute pharyngitis, unspecified (principal); R19.7 Diarrhea, unspecified; R05.9 Cough, unspecified

== ENCOUNTER 2024-10-15 08:38 | Outpatient (REF) | payer MEDICARE, SELFPAY ==
[2024-10-15 11:05] LABS: Influenza A PCR NEGATIVE (Negative); Influenza B PCR NEGATIVE (Negative); Resp Syncy Virus RNA Qual PCR NEGATIVE (Negative); SARS COV2 PCR INHOUSE POSITIVE (Negative)
== END 2024-10-15 08:39 | disposition home or self-care (01) ==
LOC: HO.LAB 08:38
PROVIDERS: PCP Internal Medicine; Visit Provider Registered Nurse
DX: J06.9 Acute upper respiratory infection, unspecified (principal); R68.89 Other general symptoms and signs
CPT/HCPCS: 0241U; 87880; 99212

== ENCOUNTER 2025-01-17 09:32 | Outpatient (AMB) | payer MEDICARE, SELFPAY ==
--- NOTE | 2025-01-17 09:36 | AM.OFFWIN_ITS ---
Intake Vital Signs 01/17/25 09:37 Height 5 ft 7 in Weight 158 lb BMI 24.7 BP 126/78 Blood Pressure Location Lt brachial Position Sitting Pulse 86 Pulse Source Pulse Oximeter Temp 97.8 F Temp Source Oral Pulse Oximetry (%) 97 Oxygen Delivery Method Room Air Intake Visit Reasons: EP-neck pain Intake Note: pt is here for neck pain, denies injury Patient Tobacco Use Status: Former Tobacco user Allergies No Known Allergies Allergy (Verified 01/17/25 09:37) Do you need a note to return to daycare/school/sports/work: No HPI HPI Comments History of Present Illness Details History of Present Illness - The patient is an 84-year-old male pre senting with acute onset neck pain. - He reported the onset of symptoms begi nning 4 days ago while engaging in sedentary activity, notably localized in the left trapezius area. - Pain intensified the following night, awakening him due to pain - No recent injury, alterations in usual sleeping conditions, or changes to his exercise regimen were noted. - The patient did not self-administer an y analgesics, adhering to his routine intake of Warfarin due to a history of atrial fibrillation. - He actively maintains his health throu gh regular exercises, including stretching and doing push-ups, without prior episodes of neck pain. No accompanying fever or systemic symptoms were noted. Physical Exam General: Cooperative, healthy appearing, comfortable, no acute distress and well developed Orientation: Patient oriented x3 Limitations: Limited neck movement due to pain Head: Normal to inspection Ears: Hearing grossly normal bilaterally Nose: Normal external nose present Face and sinus: Normal facial exam Eyes: Appearance normal, both eyes and all related structures Neck: Limited ROM due to pain, tenderness noted in left trapezius muscle Respiratory: Normal respiratory effort and able to speak in complete sentences. Skin: No rashes or lesions noted Neuro: Patient oriented x3 Extremities: Normal to inspection [facility] Medical History (Updated 01/17/25 @ 10:12 by Marlen Payne PA-C) Kidney cysts Rib pain on right side Anemia BPH (benign prostatic hyperplasia) Hyperlipidemia On anticoagulant therapy Aortic valvular disease CAD (coronary artery disease) HTN (hypertension) Surgical History History of heart artery stent Hx of aortic valve replacement with porcine valve Hx of colonoscopy Social History Are you a primary pharmacy customer care specialist to a significant other at home: No Do you presently have visiting nurse or other home services: No Patient Tobacco Use Status: Former Tobacco user Second Hand Smoke Exposure: No Review of Systems Const All systems reviewed & are unremarkable except as noted in HPI and below Physical Exam Vital Signs: Last Vital Signs Temp 97.8 F 01/17/25 09:37 Pulse 86 01/17/25 09:37 BP 126/78 01/17/25 09:37 Pulse Ox 97 01/17/25 09:37 Oxygen Delivery Method Room Air 01/17/25 09:37 BMI result Body Mass Index 24.7 Neck Neck: Yes normal visual inspection, Yes full ROM, Yes no lymphadenopathy, Yes no meningeal signs and Yes supple Back/Spine/Pelvis Other: shoulders even Cervical Spine: cervical muscular tenderness (paraspinous bilaterally and trapezius bilaterally), No pain with cervical ROM, No cervical spasm and No Cervical spine tenderness Thoracic/Lumbar Spine: thoracic and lumbar spine normal to inspection, thoraco- lumbar ROM normal, No thoracic spinal tenderness and No lumbar spinal tenderness Neuro General: no meningeal signs Assessment & Plan Assessment & Plan (1) Acute neck sprain: Code(s): S13.9XXA - Sprain of joints and ligaments of unspecified parts of neck, initial encounter Qualifiers: Encounter type: initial encounter Qualified Code(s): S13.9XXA - Sprain of joints and ligaments of unspecified parts of neck, initial encounter Plan: For the acute neck pain, I recommended Voltaren gel, a topical NSAID, to manage local inflammation due to its minimal interaction with anticoagulation therapy. A low-dose muscle relaxant was also prescribed for nighttime use to assist with muscle relaxation. Due to the patient's regular use of Warfarin, I avoided oral NSAIDs and advised heat or ice application. Cervical spine x-rays were arranged to exclude bony pathology, and I will follow up with findings to adjust treatment plans as needed. Patient was informed and verbally consented to the use of an ambient scribe for clinic note documentation during this visit. Orders: Orders XR cervical spine min 6V Today M54.2 - Cervicalgia Medications: New cyclobenzaprine 5 mg PO .QHS PRN 10 tabs 0RF Muscle Spasm Coding Level of Care Code Est Pt Level 4 (48710) Diagnoses Acute sprain of ligament of neck, initial encounter S13.9XXA Encounter type: initial encounter
[2025-01-17 09:37] VITALS: BP 126/78; PULSE 86; TEMP 36.6; O2SAT 97; BMI 24.7
--- OUTSIDE RECORDS SUMMARY | 2025-01-17 11:18 | XMS_ITS | Patient Health Record ---
Author Organization [facility] Address [address] [place] [address] Care Team Providers Care Metal Bonder Name Role Phone Fransisco Vines MD Primary Care Provider David Weinberg Unavailable [phone] Allergies No Known Allergies Reason For Referral No Information Medications Medication SIG (Take, Route, Frequency, Duration) Notes [...] Sodium 2 MG Oral for 90 Active Social History Tobacco Use: Social History Observation Description Date Details (start date - stop date) Never Smoker NA - NA Tobacco Use/Smoking Question Answer Notes Patient is a nonsmoker Alcohol Screen Question Answer Notes Did you have a drink containing alcohol in the p ast year? No Points 0 Interpretation Negative Section Notes: Nonsmoker; no significant al cohol Problems Problem Type SNOMED Code ICD Code Onset Dates Problem Status W/U Status Risk Notes Problem [id number] Change in bowel habits (R19.4) Active confirmed Problem Diverticulosis of colon (196285564) Diverticulosis of colon (K57.30) Active confirmed Problem 432759328 Positive colorectal cancer screening using Cologuard test (R19.5) Active confirmed Plan Of Treatment Future Test Test Name Order Date COLONOSCOPY 03/18/2023 Insurance Providers Payer Name Payer Address Payer Phone Subscriber Number Group Number Insured Name Patient Relationship to Insured Coverage Start Date Coverage End Date MEDICARE OF [place] [address] [place] [id number] [phone] [id number] SURI STAPLETON Self - patient is the insured [employer] ATT[employer] CLAIMS [address] [place] [address] [id number] SURI STAPLETON Self - patient is the insured Medical (General) History Medical History History ICD Code Stent inserted 05/2008 and i n 04/2017 Dr. Meneses site supervisor---going to be having a nuclear stress test and echocardiogram as of the 03/18/2023 OV with me Cyst on kidney - Dr. Daniels Hypertension Denies [place],DM,CVA,Lung disease,renal dise ase Atrial fibrillation since his cardiac va lve surgery He describes a history of DV Ts and pulmonary emboli while off his warfarin in the past Hyperlipidemia Surgical History Surgery Date(Month/Year) Aortic valve replacement Dr. Pham 11/20
== END 2025-01-17 10:13 | disposition home or self-care (01) ==
PROVIDERS: PCP Internal Medicine; Visit Provider Physician Assistant
DX: S13.9XXA Sprain of joints and ligaments of unspecified parts of neck, initial encounter (principal)

== ENCOUNTER 2025-01-17 09:32 | Outpatient (REF) | payer MEDICARE, SELFPAY ==
--- NOTE | ~2025-01-17 | XR_ITS ---
EXAMINATION: XR CERVICAL SPINE 4-5 VIEWS HISTORY: M54.2 - Cervicalgia COMPARISON: Comparison is made with the prior examination dated 12/02/2017. FINDINGS: AP, lateral, and bilateral oblique views of the cervical spine are submitted. Osseous mineralization is normal. Seven cervical vertebral bodies are identified maintaining normal height and alignment without evidence of fracture or subluxation. There is moderate degenerative disc disease at the C5-6 and C6-7 levels, with disc space narrowing and osteophyte formation. There is narrowing of the bilateral C3-4 and C6-7 neural foramen secondary to facet osteoarthritis and uncovertebral joint hypertrophy. There is no prevertebral soft tissue swelling. Calcifications in the neck bilaterally are likely related to the internal carotid arteries. XR/XR cervical spine 4V IMPRESSION: Degenerative changes of the cervical spine as described. Electronically signed by: David Escalera MD 01/17/2025 10:41 AM EDT
== END 2025-01-17 09:33 | disposition home or self-care (01) ==
LOC: HO.HMGCX 09:32
PROVIDERS: PCP Internal Medicine; Visit Provider Physician Assistant
DX: S13.9XXA Sprain of joints and ligaments of unspecified parts of neck, initial encounter (principal)
CPT/HCPCS: 72050; 99212

== ENCOUNTER → 2025-01-17 10:16 | Outpatient (BNV) | payer MEDICARE, SELFPAY | PROVIDERS: PCP Internal Medicine; Visit Provider Radiology Diagnostic Radiology | DX: M50.30 Other cervical disc degeneration, unspecified cervical region (principal) | CPT/HCPCS: 72050 ==

== ENCOUNTER 2025-02-13 14:27 | Outpatient (AMB) | payer MEDICARE, SELFPAY ==
[2025-02-13 14:36] VITALS: BP 122/72; PULSE 77; TEMP 36.6; O2SAT 99; BMI 24.9
--- NOTE | 2025-02-13 14:36 | A.OFFPC_ITS ---
Vital Signs 02/13/25 14:36 Height 5 ft 7 in Weight 159 lb BMI 24.9 BP 122/72 Blood Pressure Location Rt brachial Position Sitting Pulse 77 Pulse Source Pulse Oximeter Temp 98 F Temp Source Axillary Pulse Oximetry (%) 99 Oxygen Delivery Method Room Air Intake Visit Reasons: Routine Medical Billing Instructor Required: No Accompanied by: Spouse Allergies No Known Allergies Allergy (Verified 02/13/25 14:37) Tobacco use date assessed: 02/13/25 Fall risk assessment: No Falls in past year Dental Screening Dental Screen Date: 02/13/25 Did you have a dental visit in the last 12 months?: No Did you have a dental problem in the last 6 months where you did not have access to dental care?: No [facility] Medical History (Updated 02/13/25 @ 15:53 by Eric John MD) Atrial fibrillation Kidney cysts Rib pain on right side Anemia BPH (benign prostatic hyperplasia) Hyperlipidemia On anticoagulant therapy Aortic valvular disease CAD (coronary artery disease) HTN (hypertension) Surgical History History of heart artery stent Hx of aortic valve replacement with porcine valve Hx of colonoscopy Family History (Updated 02/13/25 @ 15:26 by Poly Contreras CMA) Father No problems noted. Father Cancer Social History Housing: House Are you a primary healthcare account manager to a significant other at home: No Do you presently have visiting nurse or other home services: No Patient Tobacco Use Status: Never used Tobacco e-Cigarette/Vaping Use: Never Used Second Hand Smoke Exposure: No service: No Current occupational status: retired Cognitive needs: No Hearing needs: No Vision needs: Yes (reading glasses) Questionnaire PHQ-9 Over the last 2 weeks, how often have you been bothered by any of the following problems? 1. Little interest or pleasure in doing things: not at all 2. Feeling down, depressed, or hopeless: not at all 3. Trouble falling or staying asleep, or sleeping too much: not at all 4. Feeling tired or having little energy: not at all 5. Poor appetite or overeating: not at all 6. Feeling bad about yourself - or that you are a failure or have let yourself or your family down: not at all 7. Trouble concentrating on things, such as reading the newspaper or watching television: not at all 8. Moving or speaking so slowly that other people could have noticed. Or the opposite - being so fidgety or restless that you have been moving around a lot more than usual: not at all 9. Thoughts that you would be better off or of hurting yourself in some way: not at all Total score: 0 Source: Developed by Drs. David Reyes, Angelica Arriola, Jesus Walter and colleagues, with an educational alva from [employer]. Thrive Questionnaire Date Thrive assessed: 02/13/25 I am a: Patient Within the past 12 months, did the food you bought not last and you didn't have the money to get more?: Never true Within the past 12 months, did you worry whether your food would run out before you got money to buy more?: Never true Do you have trouble paying for medicines?: No Do you have trouble getting transportation to medical appointments?: No Do you have trouble paying your heating and electricity bill?: No Do you have trouble taking care of your child, family member or friend?: No Do you have trouble with day-to-day activities such as bathing, preparing meals, shopping, managing finances, etc.?: No Are you currently unemployed and looking for a job?: No Are you interested in more education?: No THRIVE Score: 0 AUDIT C Alcohol Use Questionnaire (AUDIT-C) 1. How often do you have a drink containing alcohol?: Never 3. How often do you have six or more drinks on one occasion?: Never Total Score: 0 CHRISTIAN-7 AMB Questionnaire CHRISTIAN-7 Date CHRISTIAN - 7 assessed: 02/13/25 Feeling nervous, anxious, or on edge: 0 = Not at all Not being able to stop or control worryin = Not at all Worrying too much about different things: 0 = Not at all Trouble relaxin = Not at all Being so restless that it is hard to sit still: 0 = Not at all Becoming easily annoyed or irritable: 0 = Not at all Feeling afraid as if something awful might happen: 0 = Not at all Total CHRISTIAN-7 score (0-4 normal; 5-9 mild; 10-14 moderate; 15-21 severe): 0 Source: Developed by Drs. David Reyes, Angelica Arriola, Jesus Walter and colleagues, with an educational alva from [employer]. Physical exam (Primary Care) Vital Signs: Last Vital Signs Temp 98 F 02/13/25 14:36 Pulse 77 02/13/25 14:36 BP 122/72 02/13/25 14:36 Pulse Ox 99 02/13/25 14:36 Oxygen Delivery Method Room Air 02/13/25 14:36 BMI result Body Mass Index 24.9 Tobacco/Smoking Status: Tobacco use Status Tobacco use date assessed 02/13/25 02/13/25 14:38 Patient Tobacco Use Status Never used Tobacco 02/13/25 15:27 e-Cigarette/Vaping Use Never Used 02/13/25 15:27 PHQ-9: PHQ-9 Score PHQ-9: Total score 0 02/13/25 15:27 Thrive Assessment: Date of Thrive Assessment Date Thrive assessed 02/13/25 02/13/25 14:38 Coding Level of Care Code New Pt Level 4 (35137) Complex EM visit Add On G2211 Diagnoses HTN (hypertension) I10 Atrial fibrillation I48.91 Assessment & Plan Assessment & Plan (1) HTN (hypertension): Code(s): I10 - Essential (primary) hypertension Category: Medical Plan: BP is in range, continue current medications. (2) Atrial fibrillation: Code(s): I48.91 - Unspecified atrial fibrillation Category: Medical Plan: Patient is on warfarin. Goes to the Coumadin clinic at [place] for adjustment. Prescriptions for the medication will be filled in from here/ Plan History of Present Illness The patient is an 85-year-old male presenting for a routine follow-up visit. He has a history of essential hypertension and hyperlipidemia, both of which are being managed pharmacologically, noting the use of atorvastatin for lipid management. He also has a history of atrial fibrillation for which he takes warfarin and is monitored through a Coumadin Clinic in [place]. A recent episode of COVID-19 elevated his INR to 3.9, prompting an adjustment in anticoagulation management to return his INR to acceptable levels, now stabilizing at 2.2. Additionally, he reports edema in his lower extremities, manifesting as swelling during the later parts of the day that lessens overnight. Compression stockings provide some symptomatic relief. There is no report of pain associated with the edema. 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 - He has experienced some mobility limitations manifested as edema, requiring the use of compression socks. - No additional qualifying substance use or social factors were mentioned during this visit. Review of Systems - Cardiovascular: Reports atrial fibrillation and hypertension. Denies current chest pain. - Endocrine: Reports managed hyperlipidemia. - Hematologic: Reports warfarin use for anticoagulation. - Musculoskeletal: Reports edema in lower extremities. - General: Denies pain associated with edema. Physical Exam General: Cooperative and healthy appearing Nutritional Appearance: Well nourished Orientation/consciousness: Patient oriented x3 Limitations: No limitations Head: Normal to inspection General: Appearance normal, both eyes and all related structures Neck: Normal visual inspection Chest: Normal palpation of entire chest wall Respiratory: Normal respiratory effort Neurology: Patient oriented x3 Results - Labs: INR monitoring with recent values returning to goal range, noted at 2.2. Plan The patient will continue warfarin therapy with INR levels monitored to remain within the desired therapeutic range. Given recent stability, bi-weekly checks will likely suffice unless new changes occur. Essential hypertension and hyperlipidemia management continue with current pharmacotherapy, and compression stockings remain recommended for lower extremity edema. Scheduled echocardiogram will further evaluate cardiac function. Patient was informed and verbally consented to the use of an ambient scribe for clinic note documentation during this visit. Discussion Notes We discussed the importance of maintaining therapeutic INR levels and the adjustments made during and after his COVID-19 infection to ensure proper anticoagulation. I emphasized the critical role his Coumadin Clinic plays in monitoring and adjusting his warfarin. We also conversed about hyperlipidemia control through atorvastatin, reinforcing routine checks to manage cholesterol levels. The use of compression socks for edema was reasserted as a beneficial adjunct to symptom management. I recommended continuing current medications and compliance with scheduled tests such as the echocardiogram. Patient education included the routine assessment of risk factors associated with atrial fibrillation. Patient Instructions - Continue prescribed medications, including warfarin and atorvastatin, as directed. - Attend regular INR monitoring at the Coumadin Clinic. - Use compression stockings as needed for edema. - Return for an echocardiogram and follow-up appointments as scheduled. - Contact our office if experiencing any changes in symptoms or issues with medication. Orders: Orders Liver Panel Today I10 - Essential (primary) hypertension, I48.91 - Unspecified atrial fibrillation Basic Metabolic Panel Today I10 - Essential (primary) hypertension, I48.91 - Unspecified atrial fibrillation Complete Blood Count no Diff Today I10 - Essential (primary) hypertension, I48.91 - Unspecified atrial fibrillation Lipid Panel Today I10 - Essential (primary) hypertension, I48.91 - Unspecified atrial fibrillation Thyroid Stimulating Hormone Today I10 - Essential (primary) hypertension, I48.91 - Unspecified atrial fibrillation UA and rflx microscopic Today I10 - Essential (primary) hypertension, I48.91 - Unspecified atrial fibrillation Hemoglobin A1c Today I10 - Essential (primary) hypertension, I48.91 - Unspecified atrial fibrillation
== END 2025-02-13 15:52 | disposition home or self-care (01) ==
LOC: HO.HMCHD 14:27
PROVIDERS: PCP Internal Medicine; Visit Provider Internal Medicine
DX: I10 Essential (primary) hypertension (principal); I48.91 Unspecified atrial fibrillation

== ENCOUNTER → 2025-02-13 14:27 | Outpatient (BNVA) | payer MEDICARE, SELFPAY | PROVIDERS: PCP Internal Medicine; Visit Provider Internal Medicine | DX: I10 Essential (primary) hypertension (principal); I48.91 Unspecified atrial fibrillation | CPT/HCPCS: 96127; 99202 ==

== ENCOUNTER 2025-02-18 08:24 | Outpatient (REF) | payer MEDICARE, SELFPAY ==
--- OUTSIDE RECORDS SUMMARY | 2025-02-18 08:50 | XMS_ITS | Patient Health Record ---
Author Organization [facility] Address [address] [place] [address] Care Team Providers Care Branch Library Clerk Name Role Phone Fransisco Vines MD Primary Care Provider David Weinberg Unavailable [phone] Allergies No Known Allergies Reason For Referral [...] Problem Status W/U Status Risk Notes Problem 51565808 Change in bowel habits (R19.4) Active confirmed Problem Diverticulosis of colon (921566029) Diverticulosis of colon (K57.30) Active confirmed Problem 343790897 Positive colorectal cancer screening using Cologuard test (R19.5) Active confirmed Plan Of Treatment Future Test Test Name Order Date COLONOSCOPY 03/18/2023 Insurance Providers Payer Name Payer Address Payer Phone Subscriber Number Group Number Insured Name Patient Relationship to Insured Coverage Start Date Coverage End Date MEDICARE OF [place] [address] [place] [id number] [phone] [id number] SURI STAPLETON Self - patient is the insured [employer] ATT[employer] CLAIMS [address] [place] [address] [id number] SURI STAPLETON Self - patient is the insured Medical (General) History Medical History History ICD Code Stent inserted 05/2008 and i n 04/2017 Dr. Meneses bullard operator---going to be having a nuclear stress test and echocardiogram as of the 03/18/2023 OV with me Cyst on kidney - Dr. Daniels Hypertension Denies [place],DM,CVA,Lung disease,renal dise ase Atrial fibrillation since his cardiac va lve surgery He describes a history of DV Ts and pulmonary emboli while off his warfarin in the past Hyperlipidemia Surgical History Surgery Date(Month/Year) Aortic valve replacement Dr. Pham 11/20
[2025-02-18 08:51] LABS: Hematocrit 37.6 % (42.0-52.0); Hemoglobin 12.1 g/dl (14.0-18.0); Mean Corpuscular HGB Conc 32.2 g/dl (31.0-36.0); Mean Corpuscular Hemoglobin 30.9 pg (27.0-33.0); Mean Corpuscular Volume 96.2 fL (80.0-98.0); Mean Platelet Volume 9.3 fL (9.4-12.4); Platelet Count 191 X10*3/uL (160-400); Red Blood Count 3.91 X10*6/uL (4.60-5.80); White Blood Count 5.7 X10*3/uL (4.8-10.8)
[2025-02-18 08:58] LABS: Appearance Urine Clear; Color Urine Yellow; Glucose Urine UA >=1000 mg/dL (Negative); Leukocyte Esterase Urine Negative (Negative); Nitrite Urine Negative (Negative); PH 5.5 (5.0-9.0); UMIC TRIGGER UA YES; Urine Blood Small (1+) (Negative); Urine Ketones Negative (Negative); Urine Protein Negative (Neg-Trace)
[2025-02-18 09:03] LABS: Estimated Average Glucose 123 mg/dL; Hemoglobin A1C 133.8945 umol/L; Hemoglobin A1c % 5.9 % (<6.0); Total Hemoglobin (HGBA1C) 3276.5163 umol/L
[2025-02-18 09:11] LABS: Bacteria Urine None Seen (None Seen); Hyaline Casts Urine 0-2 /LPF (0-2); RBC Urine 0-2 /HPF (0-2); Squamous Epithelial Cell Urine 0-2 /HPF (0-2); WBC Urine 0-5 /HPF (0-5)
[2025-02-18 09:26] LABS: Alanine Aminotransferase 24 U/L (0-40); Albumin Level 3.3 g/dL (3.5-5.0); Alkaline Phosphatase 73 U/L (39-117); Anion Gap 7 (12-20); Aspartate Amino Transferase 34 U/L (5-37); Bilirubin Direct 0.3 mg/dL (0.0-0.5); Bilirubin Total 1.2 mg/dL (0.0-1.0); Blood Urea Nitrogen 17 mg/dL (9-16); Calcium 8.8 mg/dL (8.4-10.2); Carbon Dioxide 27 mmol/L (22-29); Chloride 112 mmol/L (96-108); Cholesterol 130 mg/dL (<200); Estimated Glomerular Filt Rate > 60; Glucose Random 103 mg/dL (60-115); HDL Cholesterol 37 mg/dL (>40); LDL Cholesterol Calculated 77 mg/dL (<100); Potassium 4.2 mmol/L (3.3-5.1); Sodium 142 mmol/L (135-145); Total Protein 6.5 g/dL (6.5-8.0); Triglycerides 82 mg/dL (<150)
[2025-02-18 09:42] LABS: Thyroid Stimulating Hormone 2.83 uIU/mL (0.32-4.0)
== END 2025-02-18 08:25 | disposition home or self-care (01) ==
LOC: HO.LAB 08:24
PROVIDERS: PCP Internal Medicine; Visit Provider Internal Medicine
DX: I10 Essential (primary) hypertension (principal); I48.91 Unspecified atrial fibrillation; Z13.1 Encounter for screening for diabetes mellitus
CPT/HCPCS: 36415; 80048; 80061; 80076; 81001; 83036; 84443; 85027

== ENCOUNTER 2025-09-03 09:23 | Outpatient (REF) | payer MEDICARE, SELFPAY ==
[2025-09-03 10:47] LABS: Hematocrit 37.9 % (42.0-52.0); Hemoglobin 12.0 g/dl (14.0-18.0); Mean Corpuscular HGB Conc 31.7 g/dl (31.0-36.0); Mean Corpuscular Hemoglobin 30.6 pg (27.0-33.0); Mean Corpuscular Volume 96.7 fL (80.0-98.0); NRBC Abs Auto 0.000 X10*3/uL (0.0-0.012); NRBC Pct Auto 0.0 /100WBC (0.0-0.2); Platelet Count 177 X10*3/uL (160-400); Red Blood Count 3.92 X10*6/uL (4.60-5.80); White Blood Count 6.4 X10*3/uL (4.8-10.8)
[2025-09-03 11:31] LABS: Iron 77 mcg/dL (45-160); Percent Iron Saturation 29 % (15-50); Total Iron Binding Capacity 269 mcg/dL (228-428); Unsaturated Iron Binding 192 ug/dL
[2025-09-03 11:39] LABS: Ferritin 53 ng/mL (20-250)
--- OUTSIDE RECORDS SUMMARY | 2025-09-03 12:43 | XMS_ITS | Patient Health Record ---
Author Organization [facility] Address [address] [place] [address] Care Team Providers Care Framing Carpenter Name Role Phone Jasmyn (RETIRED) Fransisco LINDSEY Primary Care Provide r David Erickson Unavailable [phone] Allergies No Known Allergies Reason For Referral No Information Medications Medication SIG (Take, Route, Frequency, Duration) Notes Start Date End Date Status Atorvastatin Calcium 40 MG Oral; Duration: 90 Active Carvedilol 12.5 MG 1 tablet with food O rally Twice a day; Duration: 30 day(s) Active Aspirin 81 81 MG 1 tablet Orally Once a day; Duration: 30 day(s) Active Lisinopril 20 MG Oral; Duration: 90 Active Finasteride 5 MG Oral; Duration: 90 Active Warfarin Sodium 2 MG Oral; Duration: 90 Active Social History Tobacco Use: Social [...] Problem Status W/U Status Risk Notes Problem Change in bowel habit (97061007) Change in bowel habits (R19.4) Active confirmed Problem Diverticulosis of colon (193287696) Diverticulosis of colon (K57.30) Active confirmed Problem Abnormal feces (267515840) Positive colorectal cancer screening using Cologuard test (R19.5) Active confirmed Plan Of Treatment Future Test Test Name Order Date COLONOSCOPY 03/18/2023 Insurance Providers Payer Name Payer Address Payer Phone Subscriber Number Group Number Insured Name Patient Relationship to Insured Coverage Start Date Coverage End Date MEDICARE OF [place] [address] [place] [id number] SURI Self - patient is the insured [employer] ATTN CLAIMS [address] [place] [address] [id number] SURI STAPLETON Self - patient is the insured Medical (General) History Medical History History ICD Code Stent inserted 05/2008 and i n 04/2017 Dr. Meneses banana carrier---going to be having a nuclear stress test and echocardiogram as of the 03/18/2023 OV with me Cyst on kidney - Dr. Daniels Hypertension Denies [place],DM,CVA,Lung disease,renal dise ase Atrial fibrillation since his cardiac va lve surgery He describes a history of DV Ts and pulmonary emboli while off his warfarin in the past Hyperlipidemia Surgical History Surgery Date(Month/Year) Aortic valve replacement Dr. Pham 11/20
== END 2025-09-03 09:24 | disposition home or self-care (01) ==
LOC: HO.LAB 09:23
PROVIDERS: PCP Physician Assistant Medical; Visit Provider Physician Assistant Medical
DX: I10 Essential (primary) hypertension (principal); K43.9 Ventral hernia without obstruction or gangrene; D64.9 Anemia, unspecified; R60.9 Edema, unspecified; R06.02 Shortness of breath; M79.602 Pain in left arm; J30.0 Vasomotor rhinitis; Z79.899 Other long term (current) drug therapy
CPT/HCPCS: 36415; 82728; 83540; 85027; 96127